=== PATIENT | male | born 1945 | race Two or more races ===

== ENCOUNTER 2024-11-06 09:00 | Day surgery (SDC) | payer OTHER ==
[~2024-11-06 09:00] MED LIST: ALLOPURINOL100 MG PO; CARVEDILOL6.25 MG; COZAAR50 MG PO; ROSUVASTATIN CA20 MG PO
[2024-11-06] MEDS ORDERED: CEFAZOLIN SODIUM 1,000 MG VIAL ONE (09:57)
[2024-11-06] MEDS ORDERED: BUPIVACAINE HCL/MPF 0.5% 30ML VIAL ONE ×2 (09:59→10:55)
[2024-11-06] MEDS ORDERED: TRAMADOL HCL50 MG PO (12:04)
[2024-11-06] MEDS ORDERED: TYLENOL ARTHRI650 MG PO (12:04)
[2024-11-06] MEDS ORDERED: MIRALAX17 GM PO (12:04)
[2024-11-06] MEDS ORDERED: KETO10TA2 PO (12:04)
[2024-11-06] MEDS ORDERED: MORPHINE SULFATE 2 MG/ML CARTRIDGE IV ONE ×3 (12:15→13:25)
== END 2024-11-06 16:15 | disposition home or self-care (01) ==
LOC: CIR.AMB 09:00
PROVIDERS: ATTEND Surgery
DX: K42.0 Umbilical hernia with obstruction, without gangrene (principal)
CPT/HCPCS: 49594; C1781